=== PATIENT | female | born 1950 | race African-American/Black ===

== ENCOUNTER 2017-01-30 09:13 | Emergency (ER) | payer MEDICARE, MEDICAID ==
[2017-01-30] MEDS ORDERED: ASPIRIN 81 MG TABLET, CHEWABLE PO ONE (09:32)
--- NOTE | 2017-01-30 09:52 | ER Document Report ---
ED Medical Screen (RME) - General Chief Complaint: Chest Pain Stated Complaint: CHEST PAINS Time Seen by Provider: 01/30/17 09:43 Mode of Arrival: Ambulatory Information source: Patient TRAVEL OUTSIDE OF THE [place] IN LAST 30 DAYS: No - HPI Patient complains to provider of: CP Onset: Yesterday - pt. with 1-2 day h/o CP -- has been intermittent but got worse this am - Related Data Allergies/Adverse Reactions: Penicillins Allergy (Verified 01/30/17 09:28) Past Medical History - Past Medical History Cardiac Medical History: Denies: Hx Hypertension Pulmonary Medical History: Reports: Hx Asthma Endocrine Medical History: Reports: Hx Diabetes Mellitus Type 2, Hx Hypothyroidism Renal/ Medical History: Denies: Hx Peritoneal Dialysis GI Medical History: Reports: Hx Gastroesophageal Reflux Disease Musculoskeltal Medical History: Reports Hx Arthritis Past Surgical History: Reports: Hx Hysterectomy, Hx Orthopedic Surgery - Left knee replacement, right rotator cuff, neck fusion, lumbar spine back - Immunizations Immunizations up to date: Yes Hx Diphtheria, Pertussis, Tetanus Vaccination: Yes Physical Exam - Vital signs Vitals: Temp Pulse Resp BP Pulse Ox 98.8 F 57 L 20 139/70 H 98 01/30/17 09:27 01/30/17 09:27 01/30/17 09:27 01/30/17 09:27 01/30/17 09:27 Course - Vital Signs Vital signs: Temp Pulse Resp BP Pulse Ox 98.8 F 57 L 20 139/70 H 98 01/30/17 09:27 01/30/17 09:27 01/30/17 09:27 01/30/17 09:27 01/30/17 09:27
[2017-01-30 10:05] LABS: ABSOLUTE BASOPHILS # (AUTO) 0.1 10^3/uL (0.0-0.2); ABSOLUTE EOSINOPHILS # (AUTO) 0.3 10^3/uL (0.0-0.6); ABSOLUTE LYMPHOCYTES (AUTO) 2.9 10^3/uL (0.5-4.7); ABSOLUTE MONOCYTES (AUTO) 0.8 10^3/uL (0.1-1.4); BASOPHILS % (AUTO) 0.7 % (0-2); EOSINOPHILS % (AUTO) 2.8 % (0-6); HEMATOCRIT 39.9 % (36.0-47.0); HEMOGLOBIN 12.4 g/dL (12.0-15.5); HGB HCT DIFFERENCE -2.7; LYMPHOCYTES % (AUTO) 28.8 % (13-45); MEAN CORPUSCULAR HEMOGLOBIN 24.7 pg (27.0-33.4); MEAN CORPUSCULAR HGB CONC 31.1 g/dL (32.0-36.0); MEAN CORPUSCULAR VOLUME 79 fl (80-97); RED BLOOD COUNT 5.03 10^6/uL (3.72-5.28); RED CELL DISTRIBUTION WIDTH 14.1 % (11.5-14.0); SEGMENTED NEUTROPHILS % (AUTO) 59.7 % (42-78); WHITE BLOOD COUNT 10.1 10^3/uL (4.0-10.5)
--- NOTE | 2017-01-30 10:10 | EKG REPORT ---
SEVERITY:- OTHERWISE NORMAL ECG - SINUS RHYTHM BORDERLINE LEFT AXIS DEVIATION : Confirmed by: Ghulam Staples MD 30-Jan-2017 10:10:12
--- NOTE | 2017-01-30 10:16 | ER Document Report ---
ED General - General Chief Complaint: Chest Pain Stated Complaint: CHEST PAINS Time Seen by Provider: 01/30/17 09:43 Mode of Arrival: Ambulatory Information source: Patient Notes: This is a 66-year-old female with a history of diabetes, hypothyroidism and arthritis who presents to the emergency room left chest wall pain which is been constant for the past 2 days and is worsened by chest wall movement and taking in deep breaths and also palpation in the area. Patient denies fever, chills, nausea vomiting. TRAVEL OUTSIDE OF THE [place] IN LAST 30 DAYS: No - HPI Onset: Last week Onset/Duration: Gradual Quality of pain: Dull Severity: Moderate Pain Level: 3 Associated symptoms: denies: Chest pain, Fever, Shortness of breath Exacerbated by: Movement Relieved by: Remaining still Similar symptoms previously: Yes Recently seen / treated by doctor: Yes - Related Data Allergies/Adverse Reactions: Penicillins Allergy (Verified 01/30/17 09:28) Past Medical History - General Information source: Patient - Social History Smoking Status: Never Smoker Cigarette use (# per day): No Chew tobacco use (# tins/day): No Frequency of alcohol use: None Drug Abuse: None Lives with: Family Family History: Reviewed & Not Pertinent Patient has suicidal ideation: No Patient has homicidal ideation: No - Past Medical History Cardiac Medical History: Denies: Hx Hypertension Pulmonary Medical History: Reports: Hx Asthma Endocrine Medical History: Reports: Hx Diabetes Mellitus Type 2, Hx Hypothyroidism Renal/ Medical History: Denies: Hx Peritoneal Dialysis GI Medical History: Reports: Hx Gastroesophageal Reflux Disease Musculoskeltal Medical History: Reports Hx Arthritis Past Surgical History: Reports: Hx Hysterectomy, Hx Orthopedic Surgery - Left knee replacement, right rotator cuff, neck fusion, lumbar spine back - Immunizations Immunizations up to date: Yes Hx Diphtheria, Pertussis, Tetanus Vaccination: Yes Review of Systems - Review of Systems Constitutional: denies: Chills, Fever EENT: No symptoms reported Cardiovascular: No symptoms reported Respiratory: No symptoms reported Gastrointestinal: No symptoms reported Genitourinary: No symptoms reported Female Genitourinary: No symptoms reported Musculoskeletal: See HPI Skin: No symptoms reported Hematologic/Lymphatic: No symptoms reported Neurological/Psychological: denies: Confusion, Anxiety, Weakness, Numbness Physical Exam - Vital signs Vitals: Temp Pulse Resp BP Pulse Ox 98.8 F 57 L 20 139/70 H 98 01/30/17 09:27 01/30/17 09:27 01/30/17 09:27 01/30/17 09:27 01/30/17 09:27 Notes: Physical exam: GENERAL: 66-year-old female, alert and oriented 3, no acute distress HEAD: Atraumatic, normocephalic. EYES: Pupils equal round and reactive to light, extraocular movements intact, sclera anicteric, conjunctiva are normal. ENT: TMs normal, nares patent, oropharynx clear without exudates. Moist mucous membranes. NECK: Normal range of motion, supple without lymphadenopathy or JVD. LUNGS: Breath sounds clear to auscultation bilaterally and equal. No wheezes rales or rhonchi. HEART: Regular rate and rhythm without murmurs, rubs or gallops. ABDOMEN: Soft, normoactive bowel sounds. No tenderness to palpation. No guarding, no rebound. No masses appreciated. EXTREMITIES: Normal range of motion, no pitting or edema. No clubbing or cyanosis. NEUROLOGICAL: Cranial nerves II through XII grossly intact. Normal speech, normal gait. PSYCH: Normal mood, normal affect. SKIN: Warm, Dry, normal turgor, no rashes or lesions noted. Course - Re-evaluation Re-evalutation: 01/30/17 15:23 Note: Patient has significant pain to the left chest wall and left arm with movement. She does have an outpatient MRI of her cervical spine scheduled. It is possible that this is due to radiculopathy. She is not having any weakness to the left upper extremity. She does have a lot of tenderness to palpation over the muscle of the greater trapezius and the deltoid in the left chest wall. She was followed several hours on the heart monitor and there is been no ectopy. Serial cardiac enzymes have been normal. CTA of the chest shows no evidence of pulmonary emboli. We are treating her with anti-inflammatories and muscle relaxers and she is going to follow-up with her primary care doctor. - Vital Signs Vital signs: Temp Pulse Resp BP Pulse Ox 98.8 F 57 L 16 131/76 H 96 01/30/17 09:27 01/30/17 09:27 01/30/17 15:06 01/30/17 14:01 01/30/17 15:06 - Laboratory Result Diagrams: 01/30/17 09:55 01/30/17 10:50 Laboratory results interpreted by me: 01/30/17 09:55 MCV 79 L MCH 24.7 L MCHC 31.1 L RDW 14.1 H - Diagnostic Test Radiology reviewed: Image reviewed, Reports reviewed - CTA of the chest shows no pulmonary emboli. - EKG Interpretation by Me Rate: Normal Rhythm: NSR - EKG shows sinus rhythm with a ventricular rate of 59, left axis deviation, no acute ST-T wave changes Discharge - Discharge Clinical Impression: Radiculopathy, Musculoskeletal pain Condition: Stable Disposition: HOME, SELF-CARE Additional Instructions: Recommendations: Continue with the oxycodone as previously prescribed. Start the Medrol Dosepak tomorrow (he was given today's dose in the ER). Take the Robaxin for muscle relaxation. Follow-up with Dr. Campbell as planned. Also, follow-up with patient's cervical MRI is planned. Return to the emergency room for worsening pain, weakness in the left upper extremity or any concerns or getting worse. Prescriptions: Methocarbamol [Robaxin 500 mg Tablet] 500 mg PO BID PRN #20 tablet PRN Reason: Methylprednisolone [Medrol 4 mg Dosepack 21 Tab/Pack] 4 mg PO ASDIR PRN #21 tab.ds.pk PRN Reason: Referrals: ALFREDO WOOD MD [Primary Care Provider] - Follow up in 3-5 days
--- NOTE | 2017-01-30 11:01 | RADIOLOGY REPORT (SQ) ---
EXAM DESCRIPTION: CHEST SINGLE VIEW COMPLETED DATE/TIME: 01/30/2017 10:17 am REASON FOR STUDY: bed 12 cp COMPARISON: 2015 NUMBER OF VIEWS: One view. TECHNIQUE: Single frontal radiographic view of the chest acquired. LIMITATIONS: None. FINDINGS: LUNGS AND PLEURA: No opacities, masses or pneumothorax. No pleural effusion. MEDIASTINUM AND HILAR STRUCTURES: No masses. Contour normal. HEART AND VASCULAR STRUCTURES: Heart normal in size. Normal vasculature. BONES: No acute findings. HARDWARE: None in the chest. OTHER: No other significant finding. IMPRESSION: NO SIGNIFICANT RADIOGRAPHIC FINDING IN THE CHEST. TECHNICAL DOCUMENTATION: JOB ID: [id number] [employer]- All Rights Reserved
[2017-01-30 11:20] LABS: ALANINE AMINOTRANSFERASE 22 U/L (9-52); ALKALINE PHOSPHATASE 89 U/L (38-126); ANION GAP 11 (5-19); ASPARTATE AMINO TRANSFERASE 18 U/L (14-36); BILIRUBIN,DIRECT 0.2 mg/dL (0.0-0.4); BILIRUBIN,TOTAL 0.9 mg/dL (0.2-1.3); BLOOD UREA NITROGEN 9 mg/dL (7-20); CALCIUM 9.5 mg/dL (8.4-10.2); CARBON DIOXIDE 25 mmol/L (22-30); CHLORIDE 104 mmol/L (98-107); CREATINE KINASE 83 U/L (30-135); CREATININE RESULT 0.81 mg/dL (0.52-1.25); GLUCOSE 97 mg/dL (75-110); POTASSIUM 4.1 mmol/L (3.6-5.0); TOTAL PROTEIN 7.5 g/dL (6.3-8.2)
[2017-01-30 11:32] LABS: CREATINE KINASE MB 0.22 ng/mL (<4.55)
[2017-01-30 11:33] LABS: TROPONIN I < 0.012 ng/mL
--- NOTE | 2017-01-30 12:55 | RADIOLOGY REPORT (SQ) ---
EXAM DESCRIPTION: CTA CHEST COMPLETED DATE/TIME: 01/30/2017 12:36 pm REASON FOR STUDY: left chest pain COMPARISON: None. TECHNIQUE: CT scan of the chest performed using helical scanning technique with dynamic intravenous contrast injection. Images reviewed with lung, soft tissue and bone windows. Reconstructed coronal and sagittal MPR images reviewed. Additional 3 dimensional post-processing performed to develop Maximal Intensity Projection images ([place] P). All images stored on PACS. All CT scanners at this facility use dose modulation, iterative reconstruction, and/or weight based d osing when appropriate to reduce radiation dose to as low as reasonably achievable (ALARA). [facility]: Dose Right [facility]: CareDose [facility]: Dose Right [facility]: Teradose 4D [facility]: [employer] CONTRAST TYPE AND DOSE: Not provided. RENAL FUNCTION: Creatinine 0.8 RADIATION DOSE: Up-to-date CT equipment and radiation dose reduction techniques were employed. CTDIv ol: 23.4 - 46.3 mGy. DLP: 861 mGy-cm. . LIMITATIONS: None. FINDINGS: LUNGS AND PLEURA: Mild motion and dependent lower lobe subsegmental atelectasis. AORTA AND GREAT VESSELS: Aorta not well assessed due to phase of contrast to evaluate the pulmonary a rteries. No gross aneurysm or suggested dissection. HEART: Mild cardiomegaly without pericardial effusion. PULMONARY ARTERIES: No emboli visualized in the main pulmonary arteries or the segmental branches. HILAR AND MEDIASTINAL STRUCTURES: No identified masses or abnormal nodes. HARDWARE: None in the chest. UPPER ABDOMEN: No significant findings. Limited exam. THYROID AND OTHER SOFT TISSUES: No masses. No adenopathy. BONES: No acute or significant finding. 3D MIPS: Confirm above findings. OTHER: No other significant finding. IMPRESSION: NORMAL CTA OF THE CHEST. NO PULMONARY EMBOLI. TECHNICAL DOCUMENTATION: JOB ID: [id number] Quality ID # [id number]: Final reports with documentation of one or more dose reduction techniques (e.g., Au tomated exposure control, adjustment of the mA and/or kV according to patient size, use of iterative reconstruction technique) 2010 [employer]- All Rights Reserved
[2017-01-30] MEDS ORDERED: KETOROLAC TROMETHAMINE INJ/PF 30 MG/1 ML SDV IV ONE (13:10)
[2017-01-30] MEDS ORDERED: PREDNISONE 20 MG TABLET PO ONE (13:26)
[2017-01-30 15:26] VITALS: BP 138/75
== END 2017-01-30 15:25 | disposition home or self-care (01) ==
LOC: ER 09:13
DX: M54.10 Radiculopathy, site unspecified (principal); R07.89 Other chest pain; E11.9 Type 2 diabetes mellitus without complications; J45.909 Unspecified asthma, uncomplicated; Z88.0 Allergy status to penicillin
CPT/HCPCS: 93005; 99285; 96374; 36415; 82553; 82550; 85025; 80053; 84484; 71010; 71275; 93010; A9270 ×2; J1885; J7512

== ENCOUNTER 2017-12-20 20:51 | Inpatient (IN) | payer MEDICARE, MEDICAID ==
[2017-12-20] MEDS ORDERED: ONDANSETRON HCL INJ/PF 4 MG/2 ML SDV IV ONE (21:27)
[2017-12-20 22:08] LABS: ABSOLUTE BASOPHILS # (AUTO) 0.1 10^3/uL (0.0-0.2); ABSOLUTE EOSINOPHILS # (AUTO) 0.1 10^3/uL (0.0-0.6); ABSOLUTE LYMPHOCYTES (AUTO) 2.5 10^3/uL (0.5-4.7); ABSOLUTE MONOCYTES (AUTO) 0.9 10^3/uL (0.1-1.4); ABSOLUTE NEUT (AUTO) 8.3 10^3/uL (1.7-8.2); BASOPHILS % (AUTO) 0.6 % (0-2); EOSINOPHILS % (AUTO) 0.8 % (0-6); HEMATOCRIT 38.7 % (36.0-47.0); HEMOGLOBIN 12.5 g/dL (12.0-15.5); LYMPHOCYTES % (AUTO) 21.4 % (13-45); MEAN CORPUSCULAR HEMOGLOBIN 25.9 pg (27.0-33.4); MEAN CORPUSCULAR HGB CONC 32.4 g/dL (32.0-36.0); MEAN CORPUSCULAR VOLUME 80 fl (80-97); MONOCYTES % (AUTO) 7.3 % (3-13); PLATELET COUNT 207 10^3/uL (150-450); RED BLOOD COUNT 4.83 10^6/uL (3.72-5.28); RED CELL DISTRIBUTION WIDTH 15.3 % (11.5-14.0); SEGMENTED NEUTROPHILS % (AUTO) 69.9 % (42-78); TOTAL CELLS COUNTED % (AUTO) 100 %; WHITE BLOOD COUNT 11.9 10^3/uL (4.0-10.5)
[2017-12-20 22:08] LABS: APPEARANCE,URINE CLEAR; BILIRUBIN,URINE NEGATIVE (NEGATIVE); COLOR,URINE YELLOW; GLUCOSE, URINE NEGATIVE (NEGATIVE); KETONES,URINE NEGATIVE (NEGATIVE); LEUKOCYTE ESTERASE,URINE NEGATIVE (NEGATIVE); NITRITE,URINE NEGATIVE (NEGATIVE); PROTEIN,URINE NEGATIVE (NEGATIVE); URINE SPECIFIC GRAVITY 1.006; UROBILINOGEN,URINE NEGATIVE mg/dL (<2.0)
--- NOTE | 2017-12-20 22:21 | RADIOLOGY REPORT (SQ) ---
EXAM DESCRIPTION: ACUTE ABDOMEN SERIES COMPLETED DATE/TIME: 12/20/2017 9:55 pm REASON FOR STUDY: abdominal pain COMPARISON: None. NUMBER OF VIEWS: Three views. TECHNIQUE: Frontal chest, supine abdomen and upright/decubitus abdomen radiographic images acquired. LIMITATIONS: None. FINDINGS: CHEST: Lungs clear of infiltrates. FREE AIR: None. No abnormal gas collections. BOWEL GAS PATTERN: Nonobstructive pattern. No dilated loops or air fluid levels. CALCIFICATIONS: No suspicious calcifications. HARDWARE: None in the abdomen. SOFT TISSUES: No gross mass or suggestion of organomegaly. BONES: No acute fracture. No worrisome bone lesions. OTHER: No other significant finding. IMPRESSION: NO RADIOGRAPHIC EVIDENCE FOR ACUTE ABDOMINAL DISEASE. TECHNICAL DOCUMENTATION: JOB ID: [id number] [employer]- All Rights Reserved Reading location - IP/workstation name: [email or web address]
[2017-12-20 22:26] LABS: ALANINE AMINOTRANSFERASE 11 U/L (9-52); ALBUMIN 4.1 g/dL (3.5-5.0); ALKALINE PHOSPHATASE 66 U/L (38-126); ANION GAP 10 (5-19); ASPARTATE AMINO TRANSFERASE 25 U/L (14-36); BILIRUBIN,DIRECT 0.4 mg/dL (0.0-0.4); BILIRUBIN,TOTAL 0.8 mg/dL (0.2-1.3); BLOOD UREA NITROGEN 10 mg/dL (7-20); CALCIUM 9.8 mg/dL (8.4-10.2); CARBON DIOXIDE 25 mmol/L (22-30); CHLORIDE 103 mmol/L (98-107); GLUCOSE 117 mg/dL (75-110); LIPASE 71.9 U/L (23-300); POTASSIUM 4.5 mmol/L (3.6-5.0); SODIUM 138.2 mmol/L (137-145); TOTAL PROTEIN 7.5 g/dL (6.3-8.2)
--- NOTE | 2017-12-20 23:45 | ER Document Report ---
ED General <MINERVA SOLER - Last Filed: 12/21/17 03:25> - General Mode of Arrival: Ambulatory Information source: Patient TRAVEL OUTSIDE OF THE [place] IN LAST 30 DAYS: No <ITZEL CHRISTIANSON - Last Filed: 12/22/17 06:43> - General Chief Complaint: Abdominal Pain Stated Complaint: SIDE PAIN Time Seen by Provider: 12/20/17 21:12 Notes: 67-year-old female patient complaining of abdominal swelling and pain started this morning. Patient reports that her last normal bowel movement was on with passage of only a few small hard pieces today. Patient reports associated nausea that she feels smells like stool. Patient reports that she has had intestinal blockages before. Patient denies any fever, vomiting or urinary symptoms. Patient reports past medical history of acid reflux, hypothyroidism, and chronic pain for which she takes Percocet daily. Past surgical history includes several Ortho surgery as well as a total hysterectomy. (ITZEL CHRISTIANSON) - Related Data Allergies/Adverse Reactions: Penicillins Allergy (Verified 01/30/17 09:28) Past Medical History - General Information source: Patient - Social History Smoking Status: Never Smoker Frequency of alcohol use: None Drug Abuse: None Family History: Reviewed & Not Pertinent Patient has suicidal ideation: No Patient has homicidal ideation: No - Past Medical History Cardiac Medical History: Denies: Hx Hypertension Pulmonary Medical History: Reports: Hx Asthma Endocrine Medical History: Reports: Hx Diabetes Mellitus Type 2, Hx Hypothyroidism Renal/ Medical History: Denies: Hx Peritoneal Dialysis GI Medical History: Reports: Hx Gastroesophageal Reflux Disease Musculoskeltal Medical History: Reports Hx Arthritis Past Surgical History: Reports: Hx Hysterectomy, Hx Orthopedic Surgery - Left knee replacement, right rotator cuff, neck fusion, lumbar spine back - Immunizations Immunizations up to date: Yes Hx Diphtheria, Pertussis, Tetanus Vaccination: Yes <ITZEL CHRISTIANSON - Last Filed: 12/22/17 06:43> Review of Systems - Review of Systems Constitutional: No symptoms reported EENT: No symptoms reported Cardiovascular: No symptoms reported Respiratory: No symptoms reported Gastrointestinal: See HPI Genitourinary: No symptoms reported Female Genitourinary: No symptoms reported Musculoskeletal: No symptoms reported Skin: No symptoms reported Hematologic/Lymphatic: No symptoms reported Neurological/Psychological: No symptoms reported <ITZEL CHRISTIANSON - Last Filed: 12/22/17 06:43> Physical Exam <MINERVA SOLER - Last Filed: 12/21/17 03:25> <ITZEL CHRISTIANSON - Last Filed: 12/22/17 06:43> - Vital signs Vitals: Temp Pulse Resp BP Pulse Ox 100.4 F 66 20 146/90 H 97 12/20/17 21:06 12/20/17 21:06 12/20/17 21:06 12/20/17 21:06 12/20/17 21:06 - Notes Notes: PHYSICAL EXAMINATION: GENERAL: Well-appearing, well-nourished and in moderate distress. HEAD: Atraumatic, normocephalic. EYES: Pupils equal round and reactive to light, extraocular movements intact, conjunctiva are normal. ENT: Nares patent, oropharynx clear without exudates. Moist mucous membranes. NECK: Normal range of motion, supple without lymphadenopathy LUNGS: Breath sounds clear to auscultation bilaterally and equal. No wheezes rales or rhonchi. HEART: Regular rate and rhythm without murmurs ABDOMEN: Abdomen distended with generalized TTP. No rebound. No masses appreciated. Female : No CVA tenderness. Musculoskeletal: Normal range of motion, no pitting or edema. No cyanosis. NEUROLOGICAL: Cranial nerves grossly intact. Normal speech, normal gait. Normal sensory, motor exams PSYCH: Normal mood, normal affect. SKIN: Warm, Dry, normal turgor, no rashes or lesions noted. (ITZEL CHRISTIANSON) Course - Laboratory Result Diagrams: 12/20/17 21:32 12/20/17 21:32 <MINERVA SOLER - Last Filed: 12/21/17 03:25> - Laboratory Result Diagrams: 12/20/17 21:32 12/20/17 21:32 <ITZEL CHRISTIANSON - Last Filed: 12/22/17 06:43> - Re-evaluation Re-evalutation: 12/21/17 03:25 Patient was initially seen by the nurse practitioner, Itzel Christianson. She does need to come see the patient as the CT scan was read as possible terminal ileitis. I did review the patient's this CT scan. My concern is that she has a large amount of inflammation around the ileocecal area and I cannot visualize her appendix. I did evaluate the patient and she does have some pain diffusely through abdomen but is much much worse of the right lower quadrant and patient localizes her pain to right lower quadrant when you ask her where she hurts. Pain just started this morning and she came in with a temp of 100.4. She does have a small cytosis. She has no previous history of abdominal surgeries. Past medical history includes diabetes, asthma, acid reflux disease. Called the radiologist and asked him if this could potentially be appendicitis based on my impression of the CT scan. He reviewed the CT scan again said that this could be appendicitis based on the location of the inflammation and the fact that were unable to visualize the appendix on review the scan. I therefore called the surgeon, Dr. Garcia, who agrees to come and evaluate the patient. Informed patient of the plan and she is agreeable to it. Dictation of this chart was performed using voice recognition software; therefore, there may be some unintended grammatical errors. (MINERVA SOLER) 67-year-old female patient presenting with generalized abdominal pain and abdominal swelling that started this morning. Patient has significant tenderness to palpation to her entire abdomen as well as a moderate amount of distention. Patient does report that she has had some nausea and she feels like there is a stool-like odor associated with his nausea. Patient reports that she has had a bowel obstruction before however patient reports that he did not require surgery and it was able to be treated with medications. CBC with mild leukocytosis, comprehensive metabolic panel, lipase and urinalysis are all unremarkable. Acute abdominal series is also unremarkable. On reexamination patient still reporting significant pain with any palpation of her abdomen, increasing to her RLQ. Will order CT abdomen pelvis with IV and oral contrast to rule out bowel obstruction. Patient declined any pain medication when offered. Vitals signs remain stable. Consulted attending physician, Dr. Soler regarding patient CT scan and persistent RLQ pain. Patient with continued abdominal pain. Dr. Soler went to bedside to evaluate patient. Surgeon was contacted to come evaluate patient who agrees to admit patient for observation. (ITZEL CHRISTIANSON) - Vital Signs Vital signs: Temp Pulse Resp BP Pulse Ox 98.2 F 86 18 118/76 100 12/22/17 04:30 12/22/17 04:30 12/22/17 04:30 12/22/17 04:30 12/22/17 04:30 - Laboratory Laboratory results interpreted by me: 12/20/17 12/20/17 21:32 21:32 WBC 11.9 H MCH 25.9 L RDW 15.3 H Absolute Neutrophils 8.3 H Glucose 117 H Discharge <MINERVA SOLER - Last Filed: 12/21/17 03:25> - Discharge Admitting Provider: Surgicalist Unit Admitted: Medical Floor <ITZEL CHRISTIANSON - Last Filed: 12/22/17 06:43> - Discharge Clinical Impression: Abdominal pain Qualifiers: Abdominal location: right upper quadrant Qualified Code(s): R10.11 - Right upper quadrant pain Condition: Stable Disposition: ADMITTED INPATIENT
--- NOTE | 2017-12-21 01:53 | RADIOLOGY REPORT (SQ) ---
EXAM DESCRIPTION: CT ABDOMEN PELVIS WITH IV CONTRAST CLINICAL HISTORY: 67 years Female, abdominal pain Comparison: 8.29.15 Technique: IV and oral contrast. Coronal and sagittal reformat. This exam was performed according to our departmental dose-optimization program, which includes automated exposure control, adjustment of the mA and/or kV according to patient size and/or use of iterative reconstruction technique.[facility]: Dose Right [facility]: CareDose [facility]: Dose Right [facility]: Teradose 4D [facility]: [employer] LIMITATIONS: None. Findings: Moderate diffuse bowel wall thickening at the terminal ileum. Colonic diverticulosis. Posterior L2-L5 hardware fusion. 0.2 cm L2 anterolisthesis. Inferior thorax, liver, gallbladder, pancreas, spleen, adrenals, renal system, gastrointestinal tract, pelvic organs, lymphatics, vasculature, and musculoskeleton appear otherwise unremarkable. IMPRESSION: Moderate ileitis pattern at the terminal ileum. Differential etiologies include infectious, inflammatory, and neoplastic processes.
[2017-12-21] MEDS ORDERED: DICYCLOMINE HCL 20 MG TABLET PO ONE (02:38)
[2017-12-21] MEDS ORDERED: METRONIDAZOLE 500 MG/NS RTU 100 ML IV ONE (03:13)
[2017-12-21] MEDS ORDERED: CIPROFLOXACIN 400 MG/D5W RTU 400 MG/200 ML RTUPB IV ONE (03:13)
[2017-12-21] MEDS ORDERED: ONDANSETRON HCL INJ/PF 4 MG/2 ML SDV IV PRN (04:32)
[2017-12-21] MEDS ORDERED: INSULIN REG, HUMAN 100 UNIT/ML 3 ML VIAL (PYX) SUBCUT PRN (04:32)
[2017-12-21] MEDS ORDERED: DEXTROSE 40% GEL 15 GM TUBE PO PRN ×2 (04:32)
[2017-12-21] MEDS ORDERED: GLUCAGON,HUMAN RECOMB 1 MG INJ IM PRN (04:32)
[2017-12-21] MEDS ORDERED: DEXTROSE 50%-WATER 25 GM/50 ML DISP.SYRIN IV PRN ×2 (04:32)
--- NOTE | 2017-12-21 04:46 | PDOC H&P ---
History of Present Illness Admission Date/PCP: 12/21/17 04:24 Patient complains of: Abdominal pain History of Present Illness: ROBERTO CRUZ is a 67 year old female Presents to the emergency department at [facility] via ground rescue complaining of a one-day history of abdominal pain initially epigastric and more localized over the last 12 hours to the right lower quadrant. This was associated with nausea belching. Last bowel movement 4 days ago. Initially patient thought this was constipation after taking 2 doses of 5000 units of vitamin D. Patient took MiraLAX, T, without relief. She canceled her physical therapy appointment and call the emergency department arrived was found to have right lower quadrant tenderness and a leukocytosis. His CT scan of the abdomen and pelvis was performed which showed findings consistent inflammatory versus mass effect involving her cecum. Surgery was consulted and she was advised admission. According the patient she has had intermittent bowel obstructions in the past although there is no documentation in the record of such. Her only previous abdominal surgery was a hysterectomy. Last colonoscopy last year according to patient's verbal report by Dr. Noguera with removal of polyps. Again no documentation provided.. She has a remote history of intermittent diverticulitis but no hospitalizations required. After consuming oral contrast for a CT scan, patient has had multiple diarrhea stools. Past Medical History Cardiac Medical History: Denies: Hypertension Pulmonary Medical History: Reports: Asthma Endocrine Medical History: Reports: Diabetes Mellitus Type 2, Hypothyroidism GI Medical History: Reports: Gastroesophageal Reflux Disease, Other - History of colon polyp; history of sigmoid diverticulosis Musculoskeltal Medical History: Reports: Arthritis Past Surgical History Past Surgical History: Reports: Hysterectomy, Orthopedic Surgery - Left knee replacement, right rotator cuff, neck fusion, lumbar spine back, Other - Cervical fusion, lumbar spine fusion, rotator cuff surgery, total knee repl Social History Information Source: Patient Smoking Status: Never Smoker Frequency of Alcohol Use: Rare Hx Recreational Drug Use: No Family History Family History: Reviewed & Not Pertinent Parental Family History Reviewed: Yes Children Family History Reviewed: Yes Sibling(s) Family History Reviewed.: Yes Medication/Allergy Home Medications: Hydrocodone/Acetaminophen [Vicodin 5-300 mg Tablet] 1 tab PO Q4HP PRN #15 tab Albuterol Sulfate [Proair HFA Inhalation Aerosol 8.5 gm MDI] 2 puff IH Q4H PRN # 1 mdi 10/04/13 Inhaler, Assist Devices [Aerochamber Mv] 1 each MC ASDIR PRN #0 inhaler Ipratropium Parker [Atrovent Hfa Inhalation Aerosol 12.9 gm Mdi] 2 puff IH QID PRN #1 inhaler 10/04/13 Prednisone 20 mg PO ASDIR #8 tablet 10/04/13 Carisoprodol [Soma 350 Mg Tablet] 350 mg PO TID PRN #20 tablet 02/10/14 Ibuprofen [Motrin 600 Mg Tablet] 600 mg PO TID #15 tablet 02/10/14 Oxycodone HCl/Acetaminophen [Percocet 5-325 mg Tablet] 1 - 2 tab PO Q4H PRN #25 tablet 05/30/14 Ondansetron [Zofran Odt 4 mg Tablet] 1 - 2 tab PO Q4H PRN #15 tab.rapdis Ondansetron [Zofran Odt 4 mg Tablet] 1 - 2 tab PO Q4HP PRN #10 tab.rapdis Prochlorperazine Maleate [Compazine 10 mg Tablet] 10 mg PO ASDIR PRN #10 tablet 02/20/15 Oxycodone HCl/Acetaminophen [Percocet 5-325 mg Tablet] 1 - 2 tab PO ASDIR PRN # 15 tablet 03/16/15 Dicyclomine HCl [Bentyl 20 mg Tablet] 20 mg PO QID #40 tablet 03/17/15 Ondansetron [Zofran Odt] 8 mg PO QID #15 tab.rapdis 03/17/15 Oxycodone HCl/Acetaminophen [Percocet 5-325 mg Tablet] 1 - 2 tab PO ASDIR PRN # 15 tablet 03/17/15 Amlodipine Besylate [Norvasc 2.5 mg Tablet] 2.5 mg PO DAILY #30 tablet 08/09/15 Butalb/Acetaminophen/Caffeine [Fioricet 50-300-40 mg Capsule] 1 cap PO Q4 PRN # 14 cap 08/09/15 Ondansetron [Zofran Odt 4 mg Tablet] 1 - 2 tab PO Q4H PRN #14 tab.rapdis Methocarbamol [Robaxin 500 mg Tablet] 500 mg PO BID PRN #20 tablet 01/30/17 Methylprednisolone [Medrol 4 mg Dosepack 21 Tab/Pack] 4 mg PO ASDIR PRN #21 tab.ds.pk 01/30/17 Allergies/Adverse Reactions: Penicillins Allergy (Verified 01/30/17 09:28) Review of Systems Constitutional: PRESENT: as per HPI Eyes: ABSENT: visual disturbances Ears: ABSENT: hearing changes Cardiovascular: ABSENT: chest pain, dyspnea on exertion, edema, orthropnea, palpitations Respiratory: ABSENT: cough, hemoptysis Gastrointestinal: PRESENT: as per HPI Genitourinary: ABSENT: dysuria, hematuria Musculoskeletal: ABSENT: joint swelling Endocrine: ABSENT: cold intolerance, heat intolerance, polydipsia, polyuria Physical Exam Vital Signs: Temp Pulse Resp BP Pulse Ox 99.2 F 62 20 138/78 H 96 12/21/17 02:03 12/21/17 02:03 12/21/17 02:03 12/21/17 02:03 12/21/17 02:03 General appearance: PRESENT: mild distress Head exam: PRESENT: normocephalic Eye exam: PRESENT: EOMI Mouth exam: PRESENT: dry mucosa Neck exam: PRESENT: full ROM Respiratory exam: PRESENT: clear to auscultation ana Pulses: PRESENT: normal carotid pulses, normal radial pulses GI/Abdominal exam: PRESENT: other - Scar infraumbilical area localized right lower quadrant tenderness mild guarding no rigidity. No abdominal distention. No groin hernias Rectal exam: PRESENT: deferred Extremities exam: PRESENT: other - Scar consistent with previous surgery Neurological exam: PRESENT: alert, awake, oriented to person, oriented to place , oriented to time, oriented to situation Psychiatric exam: PRESENT: appropriate affect Results Impressions: Acute Abdomen Series 12/20/17 21:26 IMPRESSION: NO RADIOGRAPHIC EVIDENCE FOR ACUTE ABDOMINAL DISEASE. Abdomen/Pelvis CT 12/21/17 00:00 IMPRESSION: Moderate ileitis pattern at the terminal ileum. Differential etiologies include infectious, inflammatory, and neoplastic processes. Assessment & Plan - Diagnosis (1) Abdominal pain Qualifiers: Abdominal location: right upper quadrant Qualified Code(s): R10.11 - Right upper quadrant pain Is this a current diagnosis for this admission?: Yes Plan: Acute onset of a localized to the right lower quadrant, with mild leukocytosis, and CT scan findings mass versus inflammatory process involving the cecum. No evidence of mechanical bowel obstruction, free fluid, free air. Sigmoid colon diverticulosis noted but no diverticulitis. Clinically the history is suspicious for acute appendicitis. Recommendations: 1. Admit, IV fluids, intravenous antibiotics, n.p.o. 2. Explained to patient current findings on CT scan, and concerns for possible inflammatory versus lower likelihood of malignant process. Patient will be observed, and reassessed by surgical list later this morning. If she does not improve clinically, she may require exploratory laparoscopy versus laparotomy. (2) Leukocytosis Is this a current diagnosis for this admission?: Yes (3) Chronic pain Qualifiers: Chronic pain type: chronic pain syndrome Qualified Code(s): G89.4 - Chronic pain syndrome Is this a current diagnosis for this admission?: Yes (4) Diabetes mellitus Qualifiers: Diabetes mellitus type: type 2 Diabetes mellitus terminal operator insulin use: without nursing home use Diabetes mellitus complication status: without complication Qualified Code(s): E11.9 - Type 2 diabetes mellitus without complications Is this a current diagnosis for this admission?: Yes (5) Hypothyroidism Qualifiers: Hypothyroidism type: acquired Qualified Code(s): E03.9 - Hypothyroidism, unspecified Is this a current diagnosis for this admission?: Yes - Time Time Spent: 50 to 70 Minutes Critical Time spent with patient: 15-24 minutes Medications reviewed and adjusted accordingly: Yes Anticipated discharge: Home - Inpatient Certification Based on my medical assessment, after consideration of the patient's comorbidities, presenting symptoms, or acuity I expect that the services needed warrant INPATIENT care.: Yes I certify that my determination is in accordance with my understanding of Medicare's requirements for reasonable and necessary INPATIENT services [42 CFR 412.3e].: Yes Medical Necessity: Need For IV Fluids, Need for Pain Control, Need for IV Antibiotics
[2017-12-21] MEDS: NORMAL SALINE 1000 ML 1,000 ML IV PRN ×2 (07:30→17:02)
[2017-12-21] MEDS ORDERED: MORPHINE SULFATE 10 MG/ML INJ IV ONE (09:00)
[2017-12-21] MEDS: FAMOTIDINE INJ/PF 20 MG/2 ML SDV IV SCH (09:07)
[2017-12-21] MEDS: METRONIDAZOLE 500 MG/NS RTU 100 ML IV SCH ×2 (09:08→17:02)
[2017-12-21] MEDS ORDERED: HYDROMORPHONE HCL INJ/PF 2 MG/ML AMPULE IV ONE (09:18)
[2017-12-21] MEDS: CIPROFLOXACIN 400 MG/D5W RTU 400 MG/200 ML RTUPB IV SCH (09:28)
[2017-12-21] MEDS ORDERED: HYDROMORPHONE HCL INJ/PF 2 MG/ML AMPULE IV PRN (14:26)
[2017-12-21] MEDS ORDERED: MIDAZOLAM 2 MG/2 ML INJ ONE (19:05)
[2017-12-21] MEDS ORDERED: HYDROMORPHONE HCL INJ/PF 2 MG/ML AMPULE ONE (19:05)
[2017-12-21] MEDS ORDERED: FENTANYL CITRATE INJ/PF 250 MCG/5 ML AMPULE ONE (19:05)
[2017-12-21] MEDS ORDERED: PROPOFOL INJ 200 MG/20 ML VIAL IV ONE (19:06)
[2017-12-21] MEDS ORDERED: BUPIVACAINE HCL 0.25 % INJ/PF (2.5 MG/1 ML) 30 ML VIAL ONE (19:09)
[2017-12-21] MEDS ORDERED: MORPHINE SULFATE 10 MG/ML INJ IV PRN (19:42)
[2017-12-21] MEDS ORDERED: PROMETHAZINE HCL INJ 25 MG/1 ML VIAL IV PRN (19:42)
[2017-12-21] MEDS ORDERED: FENTANYL CITRATE INJ/PF 100 MCG/2 ML AMPUL IV PRN ×3 (19:42)
[2017-12-21] MEDS ORDERED: MEPERIDINE HCL/PF INJ 25 MG/1 ML DISP.SYRIN IV PRN (19:42)
[2017-12-21] MEDS ORDERED: DIPHENHYDRAMINE HCL 50 MG/ML VIAL IV PRN (19:42)
[2017-12-21] MEDS ORDERED: ONDANSETRON HCL INJ/PF 4 MG/2 ML SDV ONE (20:38)
[2017-12-21] MEDS ORDERED: SUCCINYLCHOLINE CHLORIDE INJ 200 MG/10 ML VIAL ONE (20:38)
[2017-12-21] MEDS ORDERED: GLYCOPYRROLATE INJ 0.4 MG/2 ML VIAL ONE (20:38)
[2017-12-21] MEDS ORDERED: LIDOCAINE 2% INJ-PF (20 MG/ML) 2 ML AMPUL ONE (20:38)
[2017-12-21] MEDS ORDERED: NEOSTIGMINE METHYLSULFATE 10 MG/10 ML VIAL ONE (20:38)
[2017-12-21] MEDS ORDERED: VECURONIUM BROMIDE INJ 10 MG VIAL IV ONE (20:38)
--- NOTE | 2017-12-21 22:10 | EKG REPORT ---
SEVERITY:- NORMAL ECG - SINUS RHYTHM : Confirmed by: Esme Mak MD 21-Dec-2017 22:08:49
[2017-12-21] MEDS ORDERED: NORMAL SALINE 1000 ML 1,000 ML IV PRN (23:33)
--- NOTE | 2017-12-22 00:21 | OPERATIVE REPORT E ---
Operative Report NAME: ROBERTO CRUZ : 1950 AGE: 67Y DATE OF SURGERY: 12/21/2017 ROOM: 434 PREOPERATIVE DIAGNOSIS: Mass of the cecum. POSTOPERATIVE DIAGNOSIS: Mass of the cecum. OPERATION: Diagnostic laparoscopy, exploratory laparotomy, right hemicolectomy with ileotransverse anastomosis, and lysis of adhesions. SURGEON: KERRI US M.D. ANESTHESIA: General. INDICATION: A 67-year-old female who is elderly, complained of right lower quadrant pains yesterday morning. She went to the emergency room where a CAT scan of the abdomen revealed likely mass in the cecum but unable to identify the appendix. Patient has direct tenderness in the right lower quadrant with rebound tenderness. Because of the difficulty ruling out acute appendicitis, patient was taken to the OR. PROCEDURE: After adequate general anesthesia, the patient was placed in supine position and the abdomen prepped and draped in the usual sterile fashion. Appropriate timeout was called. Next, an supraumbilical small incision made in a vertical manner and the fascia identified and subsequently fascia opened and then a finger was able to be put into the abdominal cavity for blunt dissection. There were some adhesions since patient had previous open hysterectomy. Two other trocars were placed under direct vision. A 5 mm and a 10 mm along the previous hysterectomy scar. CO2 was insufflated to 10 mmHg pressure. The cecum was then identified. With the use of Shikha and another dissector, I was not able to identify the appendix. However, there was minimal inflammation noted around the area. At any rate since it was quite obvious that the patient has a cecal mass, the procedure was then converted open for a right hemicolectomy. After the fascia was opened, the cecum was palpated and noted to have a mass roughly about 2 x 3 cm with likelihood of appendix sucked in. Patient did have a lot of pains in the right lower quadrant and the decision to do surgery today was made to make sure there is no appendicitis. At any rate, with the use of the Bookwalter, better exposure of the *------* ascending colon was done. Next, the cecum and ascending colon were then dissected off the right gutter primarily with the use of scissors. The hepatic flexure was also taken down. The terminal ileum at this point was then divided with a SHU. An area in the proximal transverse colon was identified just distal to the middle colic artery and this was then divided with a SHU stapler. The mesocolon was then divided with the use of LigaSure. The distal ileum was then dissected and noted to be stuck in the pelvis. This was then taken down gingerly with the use of scissors. However, the small bowel also appeared to be adhered to its site tightly but just proximal to it the small bowel is free of adhesions. The small bowel was further divided at this point just proximal to the adhesion with the use of SHU stapler. The small bowel mesentery was then divided with LigaSure. Next, the two ends of the small bowel and transverse colon were then stapled together with a SHU and the opening closed with TA 60. The distal staple was reinforced with 2-0 silk suture. The mesenteric defect was then closed with running 2-0 Vicryl suture. There was good adequate opening within the transverse colon small bowel. The adhesion in the pelvic area was very difficult to release and it took me at least 30 minutes to take this down. After creating the anastomosis, the small bowel was run up to the ligament of Treitz and no evidence of abnormality noted. At this point, the abdominal cavity was then copiously irrigated with several liters of saline solution. Gloves where then changed and the fascia closed with running suture using 1 PDS single strand. Prior to closing the fascia however, 15-Belarusian drain was then placed through the right upper quadrant and brought to the area of the *------* site. Drain was then anchored to the skin with 2-0 nylon. The subcutaneous layer was then irrigated with saline solution and the skin closed with viky. Needle, instrument and sponge counts were all correct and estimated blood loss about 200 mL. Sterile dressings were then placed over the operative site. Patient tolerated the procedure well, brought to the recovery room in satisfactory condition. Also, prior to closing of the fascia, I made sure that the NG tube was in the stomach. The NG tube was palpated in the stomach and straightened out by the nurse electronic technologist. The NG tube was placed at the 60-cm sahil. Patient then brought to the recovery room in satisfactory condition. DICTATING PHYSICIAN: KERRI US M.D. [id number] PHY#: [id number] ID: [id number] JOB#: [id number] ACCT: [id number] cc:KERRI US M.D. >
[2017-12-22] MEDS: METRONIDAZOLE 500 MG/NS RTU 100 ML IV SCH ×3 (01:03→17:35)
[2017-12-22] MEDS: FAMOTIDINE INJ/PF 20 MG/2 ML SDV IV SCH ×3 (02:40→22:11)
[2017-12-22] MEDS: CIPROFLOXACIN 400 MG/D5W RTU 400 MG/200 ML RTUPB IV SCH ×3 (02:41→22:11)
[2017-12-22] MEDS: HYDROMORPHONE HCL INJ/PF 2 MG/ML AMPULE IV PRN ×3 (07:29→15:49)
--- NOTE | 2017-12-22 09:19 | PDOC PROGRESS REPORT ---
Subjective Progress Note for:: 12/22/17 Subjective:: Feels well. Pain under good control. Reason For Visit: ACUTE ABDOMINAL PAIN Physical Exam Vital Signs: Temp Pulse Resp BP Pulse Ox 98.1 F 72 12 126/71 H 96 12/22/17 07:42 12/22/17 07:42 12/22/17 07:42 12/22/17 07:42 12/22/17 07:42 Intake & Output 12/21/17 12/22/17 12/23/17 06:59 06:59 06:59 Intake Total 4880 Output Total 1310 Balance 3570 Weight 85.6 kg 85 kg General appearance: PRESENT: no acute distress, cooperative Respiratory exam: PRESENT: clear to auscultation ana Cardiovascular exam: PRESENT: RRR GI/Abdominal exam: PRESENT: other - Soft, nondistended, minimal abdominal tenderness. Drain output is slightly blood-tinged. Extremities exam: PRESENT: other - No swelling and no tenderness Results Impressions: Acute Abdomen Series 12/20/17 21:26 IMPRESSION: NO RADIOGRAPHIC EVIDENCE FOR ACUTE ABDOMINAL DISEASE. Abdomen/Pelvis CT 12/21/17 00:00 IMPRESSION: Moderate ileitis pattern at the terminal ileum. Differential etiologies include infectious, inflammatory, and neoplastic processes. Assessment & Plan - Diagnosis (1) Right colon mass Is this a current diagnosis for this admission?: Yes Plan: Status post right hemicolectomy. Patient looks good. Minimal NG output. DC NG , DC Herron, ambulate, await bowel function.
[2017-12-22] MEDS: ONDANSETRON HCL INJ/PF 4 MG/2 ML SDV IV PRN (11:58)
[2017-12-22] MEDS: NORMAL SALINE 1000 ML 1,000 ML IV PRN (17:12)
[2017-12-22] MEDS: MORPHINE SULFATE 10 MG/ML INJ IV PRN (23:59)
[2017-12-23 00:13] LABS: ABSOLUTE EOSINOPHILS # (AUTO) 0.1 10^3/uL (0.0-0.6); ABSOLUTE LYMPHOCYTES (AUTO) 1.8 10^3/uL (0.5-4.7); ABSOLUTE MONOCYTES (AUTO) 0.9 10^3/uL (0.1-1.4); ABSOLUTE NEUT (AUTO) 7.8 10^3/uL (1.7-8.2); BASOPHILS % (AUTO) 0.3 % (0-2); EOSINOPHILS % (AUTO) 0.7 % (0-6); HEMATOCRIT 36.5 % (36.0-47.0); HEMOGLOBIN 11.9 g/dL (12.0-15.5); MEAN CORPUSCULAR HEMOGLOBIN 25.8 pg (27.0-33.4); MEAN CORPUSCULAR HGB CONC 32.5 g/dL (32.0-36.0); MEAN CORPUSCULAR VOLUME 79 fl (80-97); MONOCYTES % (AUTO) 8.7 % (3-13); PLATELET COUNT 133 10^3/uL (150-450); RED BLOOD COUNT 4.61 10^6/uL (3.72-5.28); RED CELL DISTRIBUTION WIDTH 14.9 % (11.5-14.0); SEGMENTED NEUTROPHILS % (AUTO) 73.3 % (42-78); TOTAL CELLS COUNTED % (AUTO) 100 %; WHITE BLOOD COUNT 10.6 10^3/uL (4.0-10.5)
[2017-12-23] MEDS: METRONIDAZOLE 500 MG/NS RTU 100 ML IV SCH ×3 (02:59→17:17)
[2017-12-23 06:25] LABS: ANION GAP 9 (5-19); BLOOD UREA NITROGEN 5 mg/dL (7-20); CALCIUM 8.8 mg/dL (8.4-10.2); CARBON DIOXIDE 23 mmol/L (22-30); CHLORIDE 106 mmol/L (98-107); GLUCOSE 99 mg/dL (75-110); SODIUM 137.7 mmol/L (137-145)
[2017-12-23] MEDS: CIPROFLOXACIN 400 MG/D5W RTU 400 MG/200 ML RTUPB IV SCH ×2 (09:38→22:59)
[2017-12-23] MEDS: FAMOTIDINE INJ/PF 20 MG/2 ML SDV IV SCH ×2 (09:39→22:59)
[2017-12-23] MEDS: MORPHINE SULFATE 10 MG/ML INJ IV PRN ×2 (11:08→17:17)
[2017-12-23] MEDS: ONDANSETRON HCL INJ/PF 4 MG/2 ML SDV IV PRN ×2 (11:09→17:18)
--- NOTE | 2017-12-23 12:05 | PDOC PROGRESS REPORT ---
Subjective Progress Note for:: 12/23/17 Subjective:: Feels well. Not passing any gas. No emesis. Reason For Visit: ACUTE ABDOMINAL PAIN Physical Exam Vital Signs: Temp Pulse Resp BP Pulse Ox 99.7 F 71 16 142/72 H 97 12/23/17 07:11 12/23/17 07:11 12/23/17 07:11 12/23/17 07:11 12/23/17 07:11 Intake & Output 12/22/17 12/23/17 12/24/17 06:59 06:59 06:59 Intake Total 4880 3500 0 Output Total 1310 553 Balance 3570 2947 0 Weight 85 kg 90.2 kg General appearance: PRESENT: no acute distress, cooperative Respiratory exam: PRESENT: clear to auscultation ana Cardiovascular exam: PRESENT: RRR GI/Abdominal exam: PRESENT: other - Soft, slightly distended but minimal abdominal tenderness. Diminished bowel sounds Results Laboratory Results: 12/22/17 23:51 12/23/17 05:28 12/22/17 12/23/17 23:51 05:28 WBC 10.6 H RBC 4.61 Hgb 11.9 L Hct 36.5 MCV 79 L MCH 25.8 L MCHC 32.5 RDW 14.9 H Plt Count 133 L Seg Neutrophils % 73.3 Lymphocytes % 17.0 Monocytes % 8.7 Eosinophils % 0.7 Basophils % 0.3 Absolute Neutrophils 7.8 Absolute Lymphocytes 1.8 Absolute Monocytes 0.9 Absolute Eosinophils 0.1 Absolute Basophils 0.0 Sodium 137.7 Potassium 4.0 Chloride 106 Carbon Dioxide 23 Anion Gap 9 BUN 5 L Creatinine 0.64 Est GFR ( Amer) > 60 Est GFR (Non-Af Amer) > 60 Glucose 99 Calcium 8.8 Impressions: Acute Abdomen Series 12/20/17 21:26 IMPRESSION: NO RADIOGRAPHIC EVIDENCE FOR ACUTE ABDOMINAL DISEASE. Abdomen/Pelvis CT 12/21/17 00:00 IMPRESSION: Moderate ileitis pattern at the terminal ileum. Differential etiologies include infectious, inflammatory, and neoplastic processes. Assessment & Plan - Diagnosis (1) Right colon mass Is this a current diagnosis for this admission?: Yes Plan: Status post right hemicolectomy. Ileus. Encourage activity. Await bowel function.
[2017-12-23] MEDS: NORMAL SALINE 1000 ML 1,000 ML IV PRN (13:02)
[2017-12-24] MEDS: METRONIDAZOLE 500 MG/NS RTU 100 ML IV SCH ×3 (01:14→17:20)
[2017-12-24] MEDS: MORPHINE SULFATE 10 MG/ML INJ IV PRN ×3 (01:14→11:03)
[2017-12-24] MEDS: ONDANSETRON HCL INJ/PF 4 MG/2 ML SDV IV PRN ×2 (01:21→11:00)
[2017-12-24] MEDS: NORMAL SALINE 1000 ML 1,000 ML IV PRN ×2 (03:38→15:19)
[2017-12-24] MEDS ORDERED: KETOROLAC TROMETHAMINE 10 MG TABLET PO PRN (10:26)
--- NOTE | 2017-12-24 10:28 | PDOC PROGRESS REPORT ---
Subjective Progress Note for:: 12/24/17 Subjective:: Patient feels better; is thirsty; is voiding without Herron catheter; having some drainage around abdominal wall catheter Reason For Visit: ACUTE ABDOMINAL PAIN Physical Exam Vital Signs: Temp Pulse Resp BP Pulse Ox 99.8 F 83 18 124/72 98 12/24/17 08:15 12/24/17 08:15 12/24/17 08:15 12/24/17 08:15 12/24/17 08:15 Intake & Output 12/23/17 12/24/17 12/25/17 06:59 06:59 06:59 Intake Total 3500 2777 Output Total 553 240 Balance 2947 2537 Weight 90.2 kg 90 kg General appearance: PRESENT: no acute distress GI/Abdominal exam: PRESENT: other - Midline dressing moist; removed; viky above and below umbilicus intact; right sided drain removed. The Results Laboratory Results: 12/22/17 23:51 12/23/17 05:28 Impressions: Acute Abdomen Series 12/20/17 21:26 IMPRESSION: NO RADIOGRAPHIC EVIDENCE FOR ACUTE ABDOMINAL DISEASE. Abdomen/Pelvis CT 12/21/17 00:00 IMPRESSION: Moderate ileitis pattern at the terminal ileum. Differential etiologies include infectious, inflammatory, and neoplastic processes. Assessment & Plan - Diagnosis (1) Abdominal pain Qualifiers: Abdominal location: right upper quadrant Qualified Code(s): R10.11 - Right upper quadrant pain Is this a current diagnosis for this admission?: Yes (2) Leukocytosis Is this a current diagnosis for this admission?: Yes (3) Chronic pain Qualifiers: Chronic pain type: chronic pain syndrome Qualified Code(s): G89.4 - Chronic pain syndrome Is this a current diagnosis for this admission?: Yes (4) Diabetes mellitus Qualifiers: Diabetes mellitus type: type 2 Diabetes mellitus manager long term care insulin use: without skilled nursing use Diabetes mellitus complication status: without complication Qualified Code(s): E11.9 - Type 2 diabetes mellitus without complications Is this a current diagnosis for this admission?: Yes (5) Hypothyroidism Qualifiers: Hypothyroidism type: acquired Qualified Code(s): E03.9 - Hypothyroidism, unspecified Is this a current diagnosis for this admission?: Yes
[2017-12-24] MEDS: FAMOTIDINE INJ/PF 20 MG/2 ML SDV IV SCH ×2 (10:58→21:20)
[2017-12-24] MEDS: CIPROFLOXACIN 400 MG/D5W RTU 400 MG/200 ML RTUPB IV SCH ×2 (12:17→21:19)
[2017-12-24] MEDS: DOCUSATE SODIUM 100 MG CAPSULE PO SCH (17:21)
[2017-12-25] MEDS: METRONIDAZOLE 500 MG/NS RTU 100 ML IV SCH ×3 (01:31→17:54)
[2017-12-25] MEDS: NORMAL SALINE 1000 ML 1,000 ML IV PRN ×2 (05:02→21:47)
[2017-12-25] MEDS: FAMOTIDINE INJ/PF 20 MG/2 ML SDV IV SCH ×2 (09:08→21:49)
[2017-12-25] MEDS: DOCUSATE SODIUM 100 MG CAPSULE PO SCH ×2 (09:29→17:02)
[2017-12-25] MEDS: OXYCODONE-ACETAMINOPHEN 5-325 MG TABLET PO PRN ×2 (09:41→18:25)
[2017-12-25] MEDS: CIPROFLOXACIN 400 MG/D5W RTU 400 MG/200 ML RTUPB IV SCH (10:34)
--- NOTE | 2017-12-25 19:48 | PDOC PROGRESS REPORT ---
Subjective Progress Note for:: 12/25/17 Reason For Visit: ACUTE ABDOMINAL PAIN Physical Exam Vital Signs: Temp Pulse Resp BP Pulse Ox 98.5 F 71 18 159/92 H 100 12/25/17 19:07 12/25/17 19:07 12/25/17 19:07 12/25/17 19:07 12/25/17 19:07 Intake & Output 12/24/17 12/25/17 12/26/17 06:59 06:59 06:59 Intake Total 2777 2906 1326 Output Total 240 Balance 2537 2906 1326 Weight 90 kg 90.4 kg GI/Abdominal exam: PRESENT: other - Incision is clean, dry, intact. Results Laboratory Results: 12/22/17 23:51 12/23/17 05:28 Impressions: Acute Abdomen Series 12/20/17 21:26 IMPRESSION: NO RADIOGRAPHIC EVIDENCE FOR ACUTE ABDOMINAL DISEASE. Abdomen/Pelvis CT 12/21/17 00:00 IMPRESSION: Moderate ileitis pattern at the terminal ileum. Differential etiologies include infectious, inflammatory, and neoplastic processes. Assessment & Plan - Diagnosis (1) Perforated diverticulum of large intestine Is this a current diagnosis for this admission?: Yes - Plan Summary Plan Summary: This is a 67-year-old female with perforated right-sided diverticulitis requiring right hemicolectomy. She is doing well. Her bowels are moving. She is tolerating liquids. I will increase her diet today. Encouraged her to ambulate. Plan for possible discharge tomorrow if she continues to progress well.
[2017-12-26] MEDS: OXYCODONE-ACETAMINOPHEN 5-325 MG TABLET PO PRN (02:26)
[2017-12-26] MEDS: DOCUSATE SODIUM 100 MG CAPSULE PO SCH (09:09)
[2017-12-26] MEDS: FAMOTIDINE INJ/PF 20 MG/2 ML SDV IV SCH (09:13)
--- NOTE | 2017-12-26 11:11 | PDOC DISCHARGE SUMMARY ---
General - Admit/Disc Date/PCP Admission Date/Primary Care Provider: 12/21/17 04:24 Discharge Date: 12/26/17 - Discharge Diagnosis (1) Perforated diverticulum of large intestine Is this a current diagnosis for this admission?: Yes - Additional Information Resuscitation Status: Full Code Discharge Diet: As Tolerated Discharge Activity: No Lifting Over 10 Pounds Home Medications: Albuterol Sulfate [Ventolin HFA MDI 18 GM] 2 puff IH Q6 12/21/17 Budesonide/Formoterol Fumarate [Symbicort 160-4.5 Mcg Inhaler] 2 puff IH Q12 12/03 Ergocalciferol (Vitamin D2) [Drisdol 50,000 unit (1.25MG) Capsule] 5,000 unit PO BOO@1000 12/21/17 Levothyroxine Sodium [Synthroid 0.05 mg Tablet] 0.05 mg PO [id number] 12/21/17 Metoprolol Tartrate [Lopressor 25 mg Tablet] 25 mg PO DAILY 12/21/17 Omeprazole 20 mg PO BIDACBS 12/21/17 Oxycodone HCl [Oxy-Ir 5 mg Tablet] 5 mg PO Q6HP PRN 12/21/17 History of Present Illness History of Present Illness: ROBERTO CRUZ is a 67 year old female made with right lower quadrant pain. She was found to have a thickened cecum and acute abdomen in the emergency department. The patient was taken to the operating room for surgical intervention. Hospital Course Hospital Course: At surgery, the patient was found to have perforated diverticulitis. She underwent right hemicolectomy for this. The patient was then taken to the floor where she progressed well. The patient began ambulating, tolerating a diet, and by 12/26/2017 it was felt that she had reached maximal hospital benefit and was fit for discharge. Physical Exam Vital Signs: Temp Pulse Resp BP Pulse Ox 97.6 F 70 15 148/92 H 97 12/26/17 07:44 12/26/17 07:44 12/26/17 07:44 12/26/17 07:44 12/26/17 07:44 Intake & Output 12/25/17 12/26/17 12/27/17 06:59 06:59 06:59 Intake Total 2906 3053 Balance 2906 3053 Weight 90.4 kg 88.5 kg GI/Abdominal exam: PRESENT: other - Incision is clean, dry, intact. The patient 's abdomen is appropriately tender. Results Laboratory Results: 12/22/17 23:51 12/23/17 05:28 Impressions: Acute Abdomen Series 12/20/17 21:26 IMPRESSION: NO RADIOGRAPHIC EVIDENCE FOR ACUTE ABDOMINAL DISEASE. Abdomen/Pelvis CT 12/21/17 00:00 IMPRESSION: Moderate ileitis pattern at the terminal ileum. Differential etiologies include infectious, inflammatory, and neoplastic processes. Qualifiers - * PATIENT BEING DISCHARGED WITH ANY OF THE FOLLOWING DIAGNOSIS: No Plan Discharge Plan: Follow-up in 4 days for staple removal. Time Spent: Less than 30 Minutes
[2017-12-26 12:16] VITALS: BP 100/61
== END 2017-12-26 11:50 | disposition home or self-care (01) | DRG 330 ==
LOC: ER 20:51 → EH 12-21 04:24 → 4S 12-21 16:41 → 3S 12-21 23:57
PROVIDERS: ADMIT Surgery; ATTEND Surgery
PROC: 0DN80ZZ Release Small Intestine, Open Approach (ICD-10-PCS; 2017-12-21)
PROC: 0DTF0ZZ Resection of Right Large Intestine, Open Approach (ICD-10-PCS; principal; 2017-12-21 17:30)
DX: K57.20 Diverticulitis of large intestine with perforation and abscess without bleeding (principal); E03.9 Hypothyroidism, unspecified; K21.9 Gastro-esophageal reflux disease without esophagitis; E11.9 Type 2 diabetes mellitus without complications; J45.909 Unspecified asthma, uncomplicated; G89.29 Other chronic pain; K52.9 Noninfective gastroenteritis and colitis, unspecified
CPT/HCPCS: 36415; 74022; 74177; 790; 80048; 80053; 81001; 82962; 83690; 85025; 88307; 93005; 93010; 94799; 96374; 99284; J0330; J0744; J1170; J2250; J2270; J2405; J2704; J3010; J3490; J7030; S0028

== ENCOUNTER 2018-03-06 16:56 | Emergency (ER) | payer MEDICARE, MEDICAID ==
[2018-03-06 17:03] VITALS: BP 124/72
--- NOTE | 2018-03-06 18:08 | ER Document Report ---
ED General - General Mode of Arrival: Ambulatory Information source: Patient TRAVEL OUTSIDE OF THE [place] IN LAST 30 DAYS: No - General Chief Complaint: Post Surgical Bleeding Stated Complaint: POST OP COMPLICATION Time Seen by Provider: 03/06/18 17:47 Notes: Patient is a 67 year old female presenting to the emergency department complaining of post-op bleeding. Patient states she had a right hemicolectomy on 12/21/2017 after being diagnosed with perforated diverticulitis. Patient states that there was a blister on her midline incision and she went to her doctor's office where they told her to put a piece of gauze on the blister. She said yesterday morning the blister developed a pink spot and this morning it opened and began to bleed. Patient also complains of some lower abdominal cramps. Dr. Agrawal and Dr. Garcia performed the hemicolectomy. (LENNY CHERY) - Related Data Allergies/Adverse Reactions: Penicillins Allergy (Verified 01/30/17 09:28) Past Medical History - General Information source: Patient - Social History Smoking Status: Never Smoker Family History: Reviewed & Not Pertinent Pulmonary Medical History: Reports: Hx Asthma Endocrine Medical History: Reports: Hx Diabetes Mellitus Type 2, Hx Hypothyroidism GI Medical History: Reports: Hx Gastroesophageal Reflux Disease Musculoskeletal Medical History: Reports Hx Arthritis Past Surgical History: Reports: Hx Abdominal Surgery - Exploratory laparotomy, right hemicolectomy with lysis of adhesions.12/2017, Hx Hysterectomy, Hx Orthopedic Surgery - Left knee replacement, right rotator cuff, neck fusion, lumbar spine back, Other - Cervical fusion, lumbar spine fusion, rotator cuff surgery, total knee repl - Immunizations Immunizations up to date: Yes Hx Diphtheria, Pertussis, Tetanus Vaccination: Yes Hx Pneumococcal Vaccination: 04/18/14 Review of Systems - Review of Systems Constitutional: No symptoms reported EENT: No symptoms reported Cardiovascular: No symptoms reported Respiratory: No symptoms reported Gastrointestinal: See HPI Genitourinary: No symptoms reported Female Genitourinary: No symptoms reported Musculoskeletal: See HPI Skin: No symptoms reported Hematologic/Lymphatic: No symptoms reported Neurological/Psychological: No symptoms reported -: Yes All other systems reviewed and negative Physical Exam - General General appearance: Appears well, Alert In distress: None - HEENT Head: Normocephalic, Atraumatic Eyes: Normal Conjunctiva: Normal Extraocular movements intact: Yes Pupils: PERRL Mucous membranes: Moist Neck: Normal - Respiratory Respiratory status: No respiratory distress Chest status: Nontender Breath sounds: Normal Chest palpation: Normal - Cardiovascular Rhythm: Regular Heart sounds: Normal auscultation Murmur: No Friction rub: No Gallop: None auscultated - Abdominal Inspection: Fresh incision - Elliptical shaped englargement at the midline incision just below the umbilicus approximately 1 x 2 cm long. At the proximal aspect of the midline incision there is a break in skin consistent with patient' s history of a blister, small amount of blood, no purulence, no surrounding erythema. Probed break in skin with Q-tip for further lab work, did not go down into the SubQ. Distension: No distension Bowel sounds: Normal Tenderness: Nontender Organomegaly: No organomegaly - Back Back: Normal - Extremities General upper extremity: Normal ROM General lower extremity: Normal ROM - Neurological Neuro grossly intact: Yes Cognition: Normal Orientation: AAOx4 Chelsey Coma Scale Eye Opening: Spontaneous Chelsey Coma Scale Verbal: Oriented Nellis Coma Scale Motor: Obeys Commands Chelsey Coma Scale Total: 15 Speech: Normal - Psychological Associated symptoms: Normal affect, Normal mood - Skin Skin Temperature: Warm Skin Moisture: Dry Skin Color: Normal - Vital signs Vitals: Temp Pulse Resp BP Pulse Ox 98.1 F 75 16 124/72 99 03/06/18 17:01 03/06/18 17:01 03/06/18 17:01 03/06/18 17:01 03/06/18 17:01 - Vital Signs Vital signs: Temp Pulse Resp BP Pulse Ox 98.1 F 75 16 124/72 99 03/06/18 17:01 03/06/18 17:01 03/06/18 17:01 03/06/18 17:01 03/06/18 17:01 Discharge - Discharge Clinical Impression: Surgical wound dehiscence Qualifiers: Encounter type: initial encounter Qualified Code(s): T81.31XA - Disruption of external operation (surgical) wound, not elsewhere classified, initial encounter Condition: Stable Disposition: HOME, SELF-CARE Additional Instructions: There is a slight opening and your surgical wound skin area. This is possibly due to a suture underneath trying to come through. For now you can keep the wound dressed with bacitracin ointment and a bandage. [facility]-up with [facility] tomorrow for recheck. Referrals: JYOTI JACOBS PA-C [Primary Care Provider] - Follow up as needed [facility] [Provider Group] - Follow up tomorrow Liat Attestation: 03/06/18 18:10 I personally performed the services described in the documentation, reviewed and edited the documentation which was dictated to the scribe in my presence, and it accurately records my words and actions. (JANE PERALTA) Scribe Documentation - Scribe Written by Liat:: Liat Topete, 03/06/2018 18:17 acting as scribe for :: Eric
== END 2018-03-06 18:43 | disposition home or self-care (01) ==
LOC: ER 16:56
DX: T81.31XA Disruption of external operation (surgical) wound, not elsewhere classified, initial encounter (principal); Y83.8 Other surgical procedures as the cause of abnormal reaction of the patient, or of later complication, without mention of misadventure at the time of the procedure; E11.9 Type 2 diabetes mellitus without complications; E03.9 Hypothyroidism, unspecified; Z90.710 Acquired absence of both cervix and uterus; Z88.0 Allergy status to penicillin; Z98.1 Arthrodesis status
CPT/HCPCS: 87070; 87075; 87077; 87186; 87205; 99283

== ENCOUNTER 2018-03-25 05:16 | Day surgery (SDC) | payer MEDICARE, MEDICAID ==
[~2018-03-25 05:16] MED LIST: CIPROFLOXACIN 400 MG/D5W RTU 400 MG/200 ML RTUPB IV ONE; CIPROFLOXACIN 400 MG/D5W RTU 400 MG/200 ML RTUPB IV PRN; RINGERS SOLUTION,LACTATED 1,000 ML IV PRN
[2018-03-25] MEDS ORDERED: ALBUTEROL SULFATE 0.083% NEB 2.5 MG/3 ML AMPUL NEB ONE (06:05)
[2018-03-25 06:18] LABS: ABSOLUTE EOSINOPHILS # (AUTO) 0.2 10^3/uL (0.0-0.6); ABSOLUTE LYMPHOCYTES (AUTO) 3.4 10^3/uL (0.5-4.7); ABSOLUTE MONOCYTES (AUTO) 0.4 10^3/uL (0.1-1.4); BASOPHILS % (AUTO) 0.6 % (0-2); HEMOGLOBIN 11.5 g/dL (12.0-15.5); MEAN CORPUSCULAR HEMOGLOBIN 25.5 pg (27.0-33.4); MEAN CORPUSCULAR HGB CONC 31.9 g/dL (32.0-36.0); MEAN CORPUSCULAR VOLUME 80 fl (80-97); MONOCYTES % (AUTO) 5.5 % (3-13); PLATELET COUNT 213 10^3/uL (150-450); RED CELL DISTRIBUTION WIDTH 15.7 % (11.5-14.0); SEGMENTED NEUTROPHILS % (AUTO) 42.9 % (42-78); TOTAL CELLS COUNTED % (AUTO) 100 %; WHITE BLOOD COUNT 7.1 10^3/uL (4.0-10.5)
[2018-03-25 06:33] LABS: ANION GAP 9 (5-19); BLOOD UREA NITROGEN 10 mg/dL (7-20); CALCIUM 9.3 mg/dL (8.4-10.2); CARBON DIOXIDE 26 mmol/L (22-30); CHLORIDE 108 mmol/L (98-107); GLUCOSE 87 mg/dL (75-110); POTASSIUM 3.8 mmol/L (3.6-5.0); SODIUM 142.7 mmol/L (137-145)
[2018-03-25] MEDS ORDERED: LIDOCAINE 0.5% INJ-PF (5 MG/ML) 50 ML SDV ONE (07:12)
[2018-03-25] MEDS ORDERED: BUPIVACAINE HCL 0.5 % INJ/PF 30 ML SDV ONE (07:12)
[2018-03-25] MEDS ORDERED: KETAMINE HCL INJ 500 MG/10 ML VIAL ONE (07:13)
[2018-03-25] MEDS ORDERED: FENTANYL CITRATE INJ/PF 100 MCG/2 ML AMPUL ONE (07:13)
[2018-03-25] MEDS ORDERED: PROPOFOL INJ 200 MG/20 ML VIAL IV ONE (07:14)
[2018-03-25] MEDS ORDERED: MIDAZOLAM 2 MG/2 ML INJ ONE (07:14)
[2018-03-25] MEDS ORDERED: FAMOTIDINE INJ/PF 20 MG/2 ML SDV IV ONE (07:17)
[2018-03-25] MEDS ORDERED: METOCLOPRAMIDE HCL INJ/PF 10 MG/2 ML SDV ONE (07:19)
--- NOTE | 2018-03-25 07:33 | EKG REPORT ---
SEVERITY:- DEFECTIVE ECG - SINUS BRADYCARDIA : Confirmed by: Ghulam Staples MD 25-Mar-2018 07:31:59
[2018-03-25] MEDS ORDERED: MEPERIDINE HCL/PF INJ 25 MG/1 ML DISP.SYRIN IV PRN (07:43)
[2018-03-25] MEDS ORDERED: OXYCODONE-ACETAMINOPHEN 5-325 MG TABLET PO PRN ×2 (07:43)
[2018-03-25] MEDS ORDERED: DIPHENHYDRAMINE HCL 50 MG/ML VIAL IV PRN (07:43)
[2018-03-25] MEDS ORDERED: PROMETHAZINE HCL INJ 25 MG/1 ML VIAL IV PRN ×2 (07:43)
[2018-03-25] MEDS ORDERED: FENTANYL CITRATE INJ/PF 100 MCG/2 ML AMPUL IV PRN ×3 (07:43)
--- NOTE | 2018-03-25 08:23 | Operative Report ---
Operative Report DATE OF SURGERY: 03/25/18 PREOPERATIVE DIAGNOSIS: 1. Chronic umbilical wound. 2. Status post open right hemicolectomy POSTOPERATIVE DIAGNOSIS: Same with chronic granulating wound secondary to pain PDS suture OPERATION: Excisional debridement of skin, subcutaneous tissue, granulomatous tissue and PDS suture SURGEON: GALINDO CAICEDO ANESTHESIA: LMAC TISSUE REMOVED OR ALTERED: Skin, subcutaneous tissue, granulation tissue COMPLICATIONS: None ESTIMATED BLOOD LOSS: Scant INTRAOPERATIVE FINDINGS: See below PROCEDURE: Patient was taken to the preop holding area the main operating room where LMAC anesthesia was induced. The abdomen was prepped and draped in sterile fashion. Surgical plan surgical timeout conducted. Findings are significant for a midline scar above and below the umbilicus. Just to the patient's right side of the scar at the umbilicus was a chronic granulating tract. Focused ultrasound of this area confirmed hypoechoic tissue going down to the fascia. Photos were taken. The findings were consistent with a chronic sinus tract. The skin was anesthetized with 1% plain lidocaine. Approximately 4 cm incision was made above and below the umbilicus. A successive amount of tissue including skin and subcutaneous tissue was excised with 10 blade to incorporate the tract. Some yellow fluid was evacuated. Eventually we excised a portion of the poorly developed tract in the subcutaneous tissue going right down to the fascia. There was a knot of thickened fibrotic tissue which was excised with the knife. This then revealed a small area of granulation tissue, which when broken up with a hemostat consisted of portions of PDS suture. This is consistent with a PDS not likely used at the closure of the previous midline incision. Debridement was limited to the small PDS fragments only. The final defect in the anterior fascia was less than a centimeter. I felt that this was sufficient to eradicate the etiology of the chronic draining wound. I did not aggressively excise more fascia or probe the center of the granulating defect. The wound was irrigated; I refrain from placing any deep suture in this area as this is likely because the patient's problem in the first place. Again there was no significant fascial defect visible. Furthermore we did not enter the peritoneal cavity. Surrounding fascia.. We irrigated the wound again checked for bleeding there was none, and closed with the skin level with 5 interrupted 3 -0 Ethilon sutures. Xeroform 4 x 4's and bulky dressing applied. Patient tolerated procedure well. She was taken to recovery room stable condition.
--- NOTE | 2018-03-25 08:24 | Discharge Summary ---
Discharge Summary (SDC) - Discharge Final Diagnosis: Chronic granulating midline wound Date of Surgery: 03/25/18 Discharge Date: 03/25/18 Condition: Good Treatment or Instructions: Leave dressing on for 48 hours then remove; resume preoperative medications diet and activity; return to [facility] to see BHAVANI Alvarez, in 1 week. Patient may take Tylenol or Motrin as needed pain. Referrals: JYOTI JACOBS PA-C [Primary Care Provider] - Discharge Diet: As Tolerated Discharge Activity: Activity As Tolerated Home Care Assistance: None Needed Report the Following to Your Physician Immediately: Shortness of Breath, Increase in Pain, Fever over 101 Degrees
[2018-03-25 10:27] VITALS: BP 136/80
== END 2018-03-25 10:20 | disposition home or self-care (01) ==
LOC: OROUT 05:16
PROVIDERS: ATTEND Surgery
DX: T81.89XA Other complications of procedures, not elsewhere classified, initial encounter (principal); L92.9 Granulomatous disorder of the skin and subcutaneous tissue, unspecified; R10.9 Unspecified abdominal pain; E11.9 Type 2 diabetes mellitus without complications; Z96.653 Presence of artificial knee joint, bilateral; K21.9 Gastro-esophageal reflux disease without esophagitis; E03.9 Hypothyroidism, unspecified; R00.1 Bradycardia, unspecified; E55.9 Vitamin D deficiency, unspecified; J45.909 Unspecified asthma, uncomplicated; R01.1 Cardiac murmur, unspecified; M19.90 Unspecified osteoarthritis, unspecified site; F12.90 Cannabis use, unspecified, uncomplicated; Z87.891 Personal history of nicotine dependence; Z79.51 Long term (current) use of inhaled steroids; Z86.73 Personal history of transient ischemic attack (TIA), and cerebral infarction without residual deficits; Z79.899 Other long term (current) drug therapy; Z88.0 Allergy status to penicillin
CPT/HCPCS: 11043; 36415; 85025; 80048; 93005; 93010; 94640; J2250; J3010; J3490 ×2; J2765; J2704; J0744; S0028; A9270; 700

== ENCOUNTER 2020-05-02 06:45 | Day surgery (SDC) | payer MEDICARE, MEDICAID ==
[2020-04-29 12:06] LABS: HEMATOCRIT 39.2 % (36.0-47.0); HEMOGLOBIN 12.9 g/dL (12.0-15.5); MEAN CORPUSCULAR HEMOGLOBIN 26.5 pg (27.0-33.4); MEAN CORPUSCULAR VOLUME 80 fl (80-97); PLATELET COUNT 236 10^3/uL (150-450); RED BLOOD COUNT 4.88 10^6/uL (3.72-5.28); RED CELL DISTRIBUTION WIDTH 14.3 % (11.5-14.0); WHITE BLOOD COUNT 5.8 10^3/uL (4.0-10.5)
--- NOTE | 2020-04-29 19:51 | EKG REPORT ---
SEVERITY:- OTHERWISE NORMAL ECG - SINUS BRADYCARDIA BORDERLINE LEFT AXIS DEVIATION : Confirmed by: Larry Colon 29-Apr-2020 19:50:48
[~2020-05-02 06:45] MED LIST changes: +ACETAMINOPHEN 325 MG TABLET PO PRN; -CIPROFLOXACIN 400 MG/D5W RTU 400 MG/200 ML RTUPB IV ONE; -CIPROFLOXACIN 400 MG/D5W RTU 400 MG/200 ML RTUPB IV PRN; -RINGERS SOLUTION,LACTATED 1,000 ML IV PRN
[2020-05-02] MEDS ORDERED: PROPOFOL INJ 200 MG/20 ML VIAL IV ONE (07:05)
--- NOTE | 2020-05-02 08:08 | Discharge Summary ---
Discharge Summary (SDC) - Discharge Final Diagnosis: Residual sigmoid diverticulosis; intact ileoright colic anastomosis Date of Surgery: 05/02/20 Discharge Date: 05/02/20 Condition: Good Treatment or Instructions: [facility] [address] [id number] POST ENDOSCOPY DISCHARGE INSTRUCTIONS 1. Diet: Start clear liquids that a regular diet as tolerated. 2. Resume all preoperative medications. All oral anticoagulants and aspirins can be resumed 24 hours after procedure. 3. If a polypectomy was performed some bleeding per rectum may occur. This should stop within 3 days. If not, please contact the office. 4. If you had a colonoscopy you may experience some bloating and delayed return of normal bowel function for several days, your regular bowel movement pattern should resume within a week. 5. Please contact [facility] at to make an appointment with Dr. Garcia for 1 to 3 weeks following procedure. 6. If you have any questions or concerns regarding your care,treatment plan or follow up, please contact our office. 7. Per clinical guidelines we recommend you undergo a repeat colonoscopy in 7 years. Discharge Diet: As Tolerated Discharge Activity: Activity As Tolerated Home Care Assistance: None Needed Report the Following to Your Physician Immediately: Shortness of Breath, Increase in Pain, Fever over 101 Degrees
--- NOTE | 2020-05-02 08:11 | Operative Report ---
Operative Report DATE OF SURGERY: 05/02/20 PREOPERATIVE DIAGNOSIS: History of a right colectomy. History of diverticulosi s. Internal and external hemorrhoids POSTOPERATIVE DIAGNOSIS: Same with intact ileocolonic anastomosis; residual diverticulosis OPERATION: Total colonoscopy to ileo-colonic anastomosis SURGEON: GALINDO CAICEDO ANESTHESIA: LMAC TISSUE REMOVED OR ALTERED: None COMPLICATIONS: None ESTIMATED BLOOD LOSS: None INTRAOPERATIVE FINDINGS: See below PROCEDURE: Obtaining informed consent the patient was taken from the preoperative holding area to the main endoscopy suite where monitoring devices were attached to the patient. Plan and surgical timeout were conducted The patient was placed in the left lateral decubitus position with knees to chest. A perianal examination was performed. There was no visible or palpable anorectal pathology. Sphincter tone was felt to be normal. The flexible adult colonoscope was advanced through the anal rectal canal, all the way to the ileal-right colon anastomosis. Photos were taken. Mild LE fluid coming from the ileum. No pathology seen. This was an excellent study on the well-prepped bowel. The colonoscope was withdrawn slowly and methodically checked and the mucosa carefully. There was no evidence of tumor, stricture, bleeding or polyp. There were scattered diverticulosis of the sigmoid colon, no stricture The scope was slowly withdrawn through the anal rectal canal. Complete visualization of the rectum was achieved with photodocumentation. There were internal and external hemorrhoids, collapsed, nonthrombosed. The scope was withdrawn to the patient's anus. The patient tolerated the procedure well and was taken to the recovery area in stable condition. Per surveillance guidelines, patient will be an appropriate candidate for follow-up colonoscopy in [7] years.
[2020-05-02 08:24] VITALS: BP 144/81
[2020-05-03] MEDS ORDERED: LACTATED RINGERS 1000 ML IV PRN (05:00)
[2020-05-03] MEDS ORDERED: LIDOCAINE 0.5% INJ-PF (5 MG/ML) 50 ML SDV SUBCUT PRN (05:00)
== END 2020-05-02 08:55 | disposition home or self-care (01) ==
LOC: END 06:45
PROVIDERS: ATTEND Surgery
DX: K57.30 Diverticulosis of large intestine without perforation or abscess without bleeding (principal); K63.89 Other specified diseases of intestine; K64.8 Other hemorrhoids; K64.4 Residual hemorrhoidal skin tags; E03.9 Hypothyroidism, unspecified; K21.9 Gastro-esophageal reflux disease without esophagitis; Z90.49 Acquired absence of other specified parts of digestive tract; Z03.818 Encounter for observation for suspected exposure to other biological agents ruled out; Z87.891 Personal history of nicotine dependence; Z79.899 Other long term (current) drug therapy; Z79.890 Hormone replacement therapy; Z86.39 Personal history of other endocrine, nutritional and metabolic disease
CPT/HCPCS: 45378; 93005; 36415; 82962; 85027; 93010; U0003; J2704; C9803; 811; 87635